=== PATIENT | female | born 1965 | race Caucasian/White ===

== ENCOUNTER 2019-01-19 20:51 | Emergency (ER) | payer OTHER ==
[~2019-01-19] VITALS: Ht 157.5 cm; Wt 60.3 kg
[2019-01-19] MEDS ORDERED: CLOBEX118 ML TOP (22:03)
[2019-01-19] MEDS ORDERED: NORCO 5-325 TA1 EAC1 PO (22:03)
[2019-01-19 22:21] VITALS: BP 124/70
== END 2019-01-19 22:23 | disposition home or self-care (01) ==
LOC: M.ERS 20:51
DX: S93.492A Sprain of other ligament of left ankle, initial encounter (principal); J45.909 Unspecified asthma, uncomplicated; Z88.1 Allergy status to other antibiotic agents; Z88.8 Allergy status to other drugs, medicaments and biological substances; Z88.5 Allergy status to narcotic agent; Z88.0 Allergy status to penicillin; Z91.018 Allergy to other foods; X50.1XXA Overexertion from prolonged static or awkward postures, initial encounter; Y92.89 Other specified places as the place of occurrence of the external cause; Y93.89 Activity, other specified; Y99.8 Other external cause status